=== PATIENT | male | born 1980 | race Two or more races ===

== ENCOUNTER 2024-09-11 08:45 | Inpatient (IN) | payer OTHER ==
[~2024-09-11] VITALS: Ht 30.5 cm; Wt 88.9 kg
[2024-09-11 09:58] LABS: PH,URINE 6.5 (5.0-8.0); URINE APPEARANCE Cloudy; URINE BILIRRUBIN Negative (NEGATIVE); URINE BLOOD Negative; URINE COLOR Yellow; URINE GLUCOSE Negative (NEGATIVE); URINE KETONE Negative (NEGATIVE); URINE LEUKOCYTE Negative; URINE NITRATE Negative; URINE PROTEIN Negative (NEGATIVE); URINE UROBILINOGEN 0.2 E.U./dl
[2024-09-11 10:00] LABS: URINE RBC 8.1 uL (0.0-20.8); URINE WBC 2.3 uL (0.0-23.2)
[2024-09-11 10:00] LABS: HEMOGLOBIN 16.3 g/dL (13-16.00); MEAN CELL VOLUME 86.2 fL (80.0-100.00); MEAN CORPUSCULAR HEMOGLOBIN 28.7 pg (27.00-32.0); MEAN CORPUSCULAR HGB CONC 33.3 g/dl (32.0-36.0); PLATELET COUNT 185 K/uL (150-450); RED BLOOD COUNT 5.68 M/uL (4.00-6.00)
[2024-09-11 10:24] LABS: INR 0.99; PARTIAL THROMBOPLASTIN TIME 25.9 SECONDS (22.0-34.0); PROTHROMBIN TIME 10.8 SECONDS (9.0-11.5)
[2024-09-11 10:27] LABS: URINE BACTERIA 3.6 uL (0.0-1933); URINE EPITHELIAL CELLS 0.7 uL (0.0-38.8)
[2024-09-11 10:40] LABS: BILIRUBIN TOTAL 1.03 mg/dL (0.3-1.2); CALCIUM 8.7 mg/dL (8.5-10.1); CREATININE SERUM 0.96 mg/dL (0.70-1.30); GFR 84.32; GLOBULINA 3.2 G/DL (2.4-3.5); POTASSIUM 4.31 mEq/L (3.5-5.1); TOTAL PROTEIN 7.2 gm/dL (6.4-8.2)
[2024-09-15] MEDS ORDERED: CEFAZOLIN SODIUM 1,000 MG VIAL ONE (11:51)
[2024-09-15] MEDS ORDERED: METRONIDAZOLE/SODIUM CHLORIDE 500 MG/100 ML PIGGYBACK IV ONE ×2 (11:52→21:56)
[2024-09-15] MEDS ORDERED: METHYLENE BLUE 50MG/10ML AMP IV ONE (16:32)
[2024-09-15] MEDS ORDERED: MORPHINE SULFATE 4 MG/ML CARTRIDGE IV PRN (17:15)
[2024-09-15] MEDS ORDERED: MORPHINE SULFATE 4 MG/ML VIAL IV ONE ×2 (19:00→22:05)
[2024-09-15] MEDS ORDERED: METRONIDAZOLE/SODIUM CHLORIDE 500 MG/100 ML PIGGYBACK IV SCH (21:00)
[2024-09-15 22:38] VITALS: BP 155/73; O2SAT 99
[2024-09-15] MEDS ORDERED: RINGERS SOLUTION,LACTATED 1,000 ML IV SCH (22:45)
[2024-09-16 01:27] VITALS: BP 128/76; O2SAT 100
[2024-09-16 08:00] VITALS: BP 157/82; O2SAT 98
[2024-09-16] MEDS ORDERED: CEFTRIAXONE SODIUM 2,000 MG VIAL IV SCH (09:00)
[2024-09-16 16:57] VITALS: BP 145/77; O2SAT 98
[2024-09-16] MEDS ORDERED: ENOXAPARIN SODIUM 40 MG/0.4 ML SYRINGE SUBCUTANEO SCH (17:00)
[2024-09-17 02:46] VITALS: BP 139/72; O2SAT 100
== END 2024-09-17 09:03 | disposition home or self-care (01) | DRG 331 ==
LOC: O/R 09-15 07:15 → CIR.AMB 09-15 08:45 → SURG 09-15 08:45 → EDSTATUS 09-15 08:45 → SURH 09-15 08:45
PROVIDERS: ADMIT Surgery; ATTEND Surgery
PROC: 0DTF4ZZ Resection of Right Large Intestine, Percutaneous Endoscopic Approach (ICD-10-PCS; principal; 2024-09-15 15:45)
DX: C18.2 Malignant neoplasm of ascending colon (principal); D12.2 Benign neoplasm of ascending colon; K66.0 Peritoneal adhesions (postprocedural) (postinfection); R59.0 Localized enlarged lymph nodes